=== PATIENT | male | born 1950 | race Caucasian/White ===

== ENCOUNTER → 2017-09-04 | Outpatient (CLI) | payer OTHER ==
--- NOTE | 2017-09-04 12:51 | DIAGNOSTIC IMAGING REPORT ---
LEFT LOWER EXTREMITY VENOUS DOPPLER CLINICAL HISTORY: Left knee pain. COMPARISON STUDY: No previous studies for comparison. TECHNIQUE: Sonography of the deep venous system of the left lower extremity was performed. Compression and augmentation were evaluated. FINDINGS: The common femoral, superficial femoral and popliteal veins were compressible. Augmentation was normal. Flow was shown within the deep calf vessels. IMPRESSION: No evidence of deep venous thrombus within the left lower extremity. Electronically signed by: Justin Blake M.D. 09/04/2017 12:50 PM Dictated Date/Time: 09/04/2017 12:50 PM
== END | disposition home or self-care (01) ==
LOC: C.ULTRBC 12:18
DX: M25.562 Pain in left knee (principal)

== ENCOUNTER 2017-09-09 12:27 | Inpatient (IN) | payer OTHER ==
[~2017-09-09] VITALS: Ht 185.4 cm; Wt 99.1 kg
[2017-09-09 14:07] VITALS: BP 149/81; PULSE 104; TEMP 36.5; Ht 185.4 cm; Wt 99.1 kg
[2017-09-09 14:55] LABS: HEMATOCRIT 36.7 % (42-52); HEMOGLOBIN 12.5 g/dL (14.0-18.0); MEAN CELL VOLUME 82.3 fL (80-100); MEAN CORPUSCULAR HGB CONC 34.1 g/dl (32-36); MEAN PLATELET VOLUME 8.8 fL (7.4-10.4); PLATELET COUNT 386 K/uL (130-400); RED CELL DISTRIBUTION WIDTH SD 42.2 fL (36.4-46.3)
--- NOTE | 2017-09-09 15:26 | Anesthesiology Progress Note ---
Anesthesia Progress Note Date of Service Sep 09, 2017. Progress Notes This is a 67 y/o w male with infected left knee and left ankle.PMHx is significant for HTN.Pt has otherwise been in good health.Discussed anesthesia w / pt ,risks vs benefits ,all questions answered.Informed consent obtained.ASA 2
[2017-09-09] MEDS ORDERED: MoRPHine SULFATE 4 MG/ML 1 ML CARP\\VIAL IV PRN (15:45)
[2017-09-09] MEDS ORDERED: VANCOMYCIN CONSULT ACTIVE PRN (15:45)
[2017-09-09] MEDS ORDERED: MoRPHine SULFATE 10 MG/ML CARP/VIAL IV PRN (15:45)
[2017-09-09] MEDS ORDERED: MoRPHine SULFATE 2 MG/ML CARP IV PRN (15:45)
[2017-09-09] MEDS: OXYCODONE/ACETAMINOPHEN 5-325 TAB PO PRN ×2 (15:46→20:55)
[2017-09-09] MEDS ORDERED: VANCOMYCIN INJ 2,500 MG in SODIUM CHLORIDE 0.9% 500ML 500 ML IV ONE (16:00)
[2017-09-09 16:07] VITALS: BP 147/89; PULSE 101; TEMP 36.7; O2SAT 97
[2017-09-09 16:47] LABS: CREATININE 1.19 mg/dl (0.60-1.40)
--- NOTE | 2017-09-09 20:00 | HISTORY & PHYSICAL EXAMINATION ---
DATE OF ADMISSION: 09/10/2017 REASON FOR ADMISSION: Left knee pain, rule out infected left knee. HISTORY OF PRESENT ILLNESS: The patient is a 67-year-old white male who states that approximately on the of this month he had fallen in a parking lot on the ice. He ended up initially just having some soreness in the knee; however, it soon began to swell and had become very painful. He was seen in [facility] Emergency Room at that time and the patient and his who is also present states that they took too large syringe full of bloody fluid out of the knee and then put an Corey wrap on and felt that it was due to trauma. X-rays were negative for fracture and he was sent home and told to follow up with his orthopedist. He was also having some ankle discomfort and had an ankle film which was also negative for fracture. The patient then continued to notice increase in the swelling again. He was initially seen by Dr. Alex and plans were for an MRI which was then showing a meniscal tear in the left knee. Plans were for then to do an arthroscopy which he was scheduled for however, the patient continued to have worsening knee pain and began having chills, although he was not having any type of fever that could be documented by his . He came to see Dr. Alxe today at which an aspirate was then taken and the patient was then sent to the hospital here at [facility] to rule out septic left knee and the patient is now being admitted. The patient states that he has been essentially nonweightbearing and using crutches at home and continues to do so. He denies any rigors. No chest pain, chest pressure or shortness of breath. PAST MEDICAL HISTORY: Hypertension, which he states he is no longer taking his medication, that was his choice. History of gout. Denies diabetes mellitus, tuberculosis, hepatitis, COPD, rheumatic fever. PAST SURGICAL HISTORY: None. FAMILY HISTORY: Left Knee Arthroscopy x3. R knee arthroscopy SOCIAL HISTORY: The patient smokes cigars on occasion and does drink alcohol. He is . MEDICATIONS: Currently on no medications at this time but he was taking lisinopril for hypertension until he quit taking the pill itself. ALLERGIES: NKDA. REVIEW OF SYSTEMS: No recent fevers but was having chills at home. No nausea or vomiting. No unexplained weight loss or weight gain. No flu or cold-like symptoms. No increased cough or sputum production. No shortness of breath at rest or on exertion. No chest pain, chest pressure, irregular heartbeat. No nausea, vomiting or diarrhea. No abdominal pain, no melena, hematochezia or hematemesis. No hematuria, pyuria, dysuria or renal calculi. No history of frequent infection. No history of seizures. No history of CVA, TIA. No history of migraine headaches. PHYSICAL EXAMINATION: VITAL SIGNS: Recent vital signs show a temperature 36.7, pulse 101, respirations 18, BP 147/89 and pulse ox is 97 on room air. GENERAL: The patient is a well-developed, well-nourished white male who appears younger than his stated age. Upon entering the room, he was ambulating out of the restroom and doing fairly well with that, but not putting much weight on his left lower extremity. He was able to essentially get back into bed almost by himself with just a little bit of help getting his left leg into the bed itself. He does not look to be in severe pain at this time and is pleasant and cooperative. SKIN: Warm and dry. He has a noted scratch on his left lower extremity just above the ankle which was due to a cat which was approximately a week or so. Otherwise, there is no overt erythema, other than down at the ankle which will be explained in extremities. HEENT: Head is normocephalic and atraumatic. There is no scleral icterus or injection. Nasal airway is patent. Oral mucosa is pink and moist. NECK: Supple. HEART: Regular rate and rhythm. LUNGS: Clear to auscultation. ABDOMEN: Soft, round and nontender. Bowel sounds are present x4. GENITALIA AND RECTAL: Not performed at this time. EXTREMITIES: On examination of the patient's left lower extremity, he has some mild tenderness over the lateral aspect of the joint line of his knee. There is no overt erythema and maybe a mild effusion of the left knee compared to the right. His range of motion is limited at this time. He does have a slight flexion contracture due to mostly pain and can flex the knee to about 40 degrees until he begins to say that he is having a lot of pain. No pain in the left hip and range of motion is essentially within normal limits. The left ankle has noted erythema but appears more like bruising on the medial aspect. He has some increased pain over the medial malleolus, but no crepitus is appreciated and the bruising goes down over the ankle and down over the parts of the dorsum of the foot over the medial aspect. He has mild swelling noted of the ankle and minimal pain over the lateral malleolus. He is able to do gentle range of motion of the left ankle with mild pain but has some limited range of motion compared to the right. There is no decreased sensation noted of the left lower extremity at this time. Right lower extremity is essentially within normal limits with range of motion of the hip, knee and ankle and is nontender. Upper extremity range of motion is within normal limits bilaterally. He is nontender at the shoulders, elbows and wrists and neck is nontender on palpation and he has good range of motion of the neck at this time. He denies any thoracic back pain and no overt lumbosacral pain at this time but does have back pain off and on in the past. There is no gross motor or sensory loss at this time other than noted decreased range of motion due to pain in the left lower extremity. ASSESSMENT: Left knee pain status post fall with noted meniscal tear and question of septic left knee. PLAN: Currently, his white count is normal at 6.10. Sed rate was increased at 52. C-reactive protein was 7. His aspirate was sent for cell count by Dr. Alex and was showing 4689 white cells, 3,000 red cells, 89.8% polys and 10% monocytes. Fluid crystals were analyzed and did show strongly birefringent needle shaped crystals representing gout. Gram stain and culture are pending. I have discussed this with Dr. Alex recently. We will continue his vancomycin and continue plans for infectious disease consult. The patient is slated for an arthroscopy of the left knee tomorrow with Dr. Yasir figueroa and we will continue these plans for now. We will continue n.p.o. after midnight and hold off on any type of nonsteroidal anti-inflammatory for his gout for the pending surgery. CHOCO
--- NOTE | 2017-09-09 21:19 | Pharmacy Progress Note ---
Pharmacy Antibiotic Consult Date of Service: Sep 09, 2017. Pharmacy Dosing Scope Pharmacy is consulted to initiate vancomycin IV dosing therapy, order appropriate labs and adjust drug dose/frequency. Subjective The patient is a 67 year old male admitted on Sep 09, 2017 at 13:20 with left knee pain swelling, possible septic knee. Objective Height (Feet): 6 Height (Inches): 1.00 Weight (Kilograms): 99.090 Lab Results (24hrs): Test 09/09/17 14:38 09/09/17 14:58 White Blood Count 6.10 K/uL (4.8-10.8) Red Blood Count 4.46 M/uL (4.7-6.1) Hemoglobin 12.5 g/dL (14.0-18.0) Hematocrit 36.7 % (42-52) Mean Corpuscular Volume 82.3 fL (80-100) Mean Corpuscular Hemoglobin 28.0 pg (25-34) Mean Corpuscular Hemoglobin Concent 34.1 g/dl (32-36) RDW Standard Deviation 42.2 fL (36.4-46.3) RDW Coefficient of Variation 14.0 % (11.5-14.5) Platelet Count 386 K/uL (130-400) Mean Platelet Volume 8.8 fL (7.4-10.4) Erythrocyte Sedimentation Rate 52 mm/hr (0-14) Creatinine 1.19 mg/dl (0.60-1.40) Est Creatinine Clear Calc Drug Dose 76.7 ml/min Estimated GFR () 73.9 Estimated GFR (Non- 63.7 C-Reactive Protein 7.01 mg/dl (0-0.29) Procalcitonin < 0.05 ng/ml (0-0.5) Hepatitis C Antibody Screen NEG (NEG) Body Fluid Source KNEE Body Fluid Color YELLOW Body Fluid Appearance CLOUDY Body Fluid WBC 4689 /uL Body Fluid RBC 3000 /uL Body Fluid Polynuclear WBCs (%) 89.8 % Body Fluid Mononuclear WBCs (%) 10.2 % Body Fluid Crystals Micro Results: Joint fluid cx left knee, pending. Assessment & Plan Vancomycin: Loading dose: 2500mg (~25mg/kg) mg IV X 1 dose then: 1500mg IV every 14 hours. Goal trough level estimate: between 15 - 20 mcg/mL. Peak and trough or random level have not been ordered yet; pt for OR tomorrow and will order trough level postop. Pharmacy will continue to follow and will adjust dose/frequency as necessary. Thank you
[2017-09-09 23:00] VITALS: BP 137/74; PULSE 90; TEMP 37.2; O2SAT 95
[2017-09-10] MEDS ORDERED: VANCOMYCIN INJ 1,500 MG in SODIUM CHLORIDE 0.9% 500ML 500 ML IV SCH (06:00)
[2017-09-10 08:39] VITALS: BP 146/83; PULSE 88; TEMP 36.8; O2SAT 94
--- NOTE | 2017-09-10 10:57 | Orthopedic Progress Note ---
Orthopedic Progress Note Date of Service Sep 10, 2017. Subjective Reports: feeling well, complaints (knee pain) Additional Notes: Pt lying in bed. Feels that the knee may be a little better. No new complaints. Dr Alex has cancelled OR for today. Discussed with pt. Objective calves soft nontender, N/V intact, A&O x3, toes mobile Less erythema on ankle and the swelling appears to be down a bit. No overt effusion in the left knee. No erythema. ROM still limited due to pain. Date Time Temp Pulse Resp B/P (MAP) Pulse Ox O2 Delivery O2 Flow Rate FiO2 09/10/17 08:39 36.8 88 18 146/83 (104) 94 Room Air 09/09/17 23:56 Room Air 09/09/17 23:00 37.2 90 16 137/74 (95) 95 Room Air 09/09/17 19:50 Room Air 09/09/17 16:07 36.7 101 18 147/89 (108) 97 Room Air 09/09/17 15:37 Room Air 09/09/17 14:07 36.5 104 18 149/81 Room Air Laboratory Results 24 Hours: Test 09/09/17 14:38 Hematocrit 36.7 % Hemoglobin 12.5 g/dL Assessment & Plan Assessment: Likely Gouty Flare vs infection left knee Plan: Cx pending. Gram stain negative for organisms Consult placed for ID team Continue antibx for now Inhouse Planning Pain Management: Morphine, Oxy IR
[2017-09-10] MEDS ORDERED: NURSING VERBAL MED ORDER ONE (11:30)
[2017-09-10] MEDS: INDOMETHACIN 25 MG CAP PO SCH ×2 (12:35→21:01)
--- NOTE | 2017-09-10 13:32 | Progress Note ---
Progress Note Date of Service Sep 10, 2017. Progress Note ID Consult Dictated #[id number] A/P: 1. gout left knee -Agree with alyxo for now, pending aspirate culture, if negative, can d/c off of abx -Continue therapy for gout -thank you
--- NOTE | 2017-09-10 13:48 | INFECT. DISEASE CONSULTATION ---
DATE OF CONSULTATION: 09/10/2017 HISTORY OF PRESENT ILLNESS: This is a 67-year-old gentleman who was admitted to the hospital after he had worsening knee pain and swelling. His is present and provides his history. She states that he did slip on the ice in the parking lot on the and subsequently had worsening knee pain and swelling. He was seen in the ER and he had an aspiration of a significant amount of bloody fluid. He continued to have pain, followed up with orthopedic surgery and an MRI was performed. This showed a partial meniscus tear. He was due to have outpatient surgery today for meniscus repair; however, he continued to have worsening pain and swelling in the left knee. Additionally, he did suffer a cat scratch on the medial ankle from his cat at home and continued with pain in the ankle as well. He does have a history of gout, but has not had a flare in some time. He did follow up with orthopedics and was subsequently sent to the Emergency Room for admission. An aspirate was done yesterday, which showed 4689 white cells with 90% neutrophils. Crystal analysis was significantly positive for gout. Culture is pending. CRP is 7. Sed rate is 62. His white blood cell count was normal. He has been afebrile since admission and states he was afebrile prior to admission. He is on empiric vancomycin, awaiting culture results. He initially was due to have surgery today; however, this has been postponed pending culture results. If culture is negative, he will be discharged home on treatment for gout and will follow up at a later date for meniscus repair. If his cultures are positive, he states he will go to the OR tomorrow for a washout. He currently denies any fevers or chills. He has no chest pain, cough, shortness of breath, nausea, vomiting or diarrhea. He is currently on pain medication and he states that his pain is well controlled and he is feeling significantly better today. His remaining review of systems is reviewed and unremarkable. PAST MEDICAL HISTORY: Significant for hypertension and a history of gout. PAST SURGICAL HISTORY: He has no surgical history. FAMILY HISTORY: Noncontributory. SOCIAL HISTORY: Significant for occasional cigar smoke. He does not drink or use drugs. He is and his is present. ALLERGIES: He has no known drug allergies. CURRENT MEDICATIONS: Include vancomycin, indomethacin, oxycodone, and morphine. PHYSICAL EXAMINATION: VITAL SIGNS: He is afebrile, pulse 80, respiratory rate 18, blood pressure 146/83, and oxygen saturation is 94%-97% on room air. GENERAL: He is awake, alert and oriented x3. He is in no acute distress. HEENT: Mucous membranes are moist. Extraocular muscles are intact. HEART: Regular. LUNGS: Clear. ABDOMEN: Soft. EXTREMITIES: There is no lower extremity edema. Examination of the left knee reveals minimal swelling. There is no pain, warmth, erythema or tenderness. There is a cat scratch noted on the left medial ankle. There is minimal swelling at the medial malleolus. There is no tenderness or warmth or open wound. LABORATORY STUDIES: CBC yesterday reveals a white blood cell count of 6.1, hemoglobin 12.5, and platelets were 386. Sed rate is 52. Creatinine yesterday was 1.1. CRP was 7.0. Procalcitonin was negative. Aspirate is as above. Hep C antibody is negative. Culture is pending. Gram stain shows no organisms, but many WBCs. There is no imaging to review on this admission. ASSESSMENT AND PLAN: Gout of the left knee. I agree that he can be continued on empiric antibiotics pending the results of his wound culture. If his aspirate culture is negative, certainly he could be discontinued with the vancomycin and discharged home without antibiotics and focus history on gout. I will follow the results of culture.
[2017-09-10 15:38] VITALS: BP 169/92; PULSE 94; TEMP 36.2; O2SAT 96
[2017-09-10 16:42] VITALS: BP 137/82
[2017-09-10] MEDS: OXYCODONE HCL IR 5 MG TAB (IMMEDIATE RELEASE) PO PRN ×2 (16:48→21:02)
[2017-09-10] MEDS: VANCOMYCIN INJ 1,500 MG in SODIUM CHLORIDE 0.9% 500ML 500 ML IV SCH (19:49)
[2017-09-10 19:53] VITALS: BP 119/71; PULSE 94
[2017-09-10 22:50] VITALS: BP 134/78; PULSE 85; TEMP 36.9; O2SAT 96
[2017-09-11] MEDS ORDERED: VANCOMYCIN TROUGH ONE (05:30)
[2017-09-11 06:39] LABS: CREATININE 1.15 mg/dl (0.60-1.40)
[2017-09-11] MEDS ORDERED: INDO-22 PO (07:07)
--- NOTE | 2017-09-11 07:11 | Discharge Instructions ---
Discharge Instructions Date of Service Sep 11, 2017. Admission Reason for Admission: L Knee Poss Septic Joint, Arthroscopic Ind Discharge Discharge Diagnosis / Problem: Gout Left Knee Discharge Goals Goal(s): Decrease discomfort, Improve function, Increase independence Activity Recommendations Activity Limitations: per Instructions/Follow-up section Weightbearing Status: Left weightbearing (as tolerated) Weight as tolerated on the left knee. You may use ice or heat as needed on the knee. Keep left leg elevated when at rest if you continue to have swelling Follow up with Dr Alex in 10-14 days. Call for appointment. [phone] . Current Hospital Diet Patient's current hospital diet: Regular Diet Discharge Diet Recommended Diet: Regular Diet Pending Studies Studies pending at discharge: yes List of pending studies: Knee culture results Medical Emergencies . Who to Call and When: Medical Emergencies: If at any time you feel your situation is an emergency, please call 911 immediately. . Non-Emergent Contact Non-Emergency issues call your: Surgeon Call Non-Emergent contact if: temperature is above 101.5, your pain is not controlled, your pain is worsening, wound has increased drainage, wound has increased redness . "Provider Documentation" section prepared by Jaxon Rebolledo. . VTE Core Measure Inpt VTE Proph given/why not?: Other Anticoagulation, T.E.D. Stockings, SCD's [place] Drug Monitoring Program Search Results: patient reviewed within database, no issues identified
[2017-09-11] MEDS: VANCOMYCIN INJ 1,500 MG in SODIUM CHLORIDE 0.9% 500ML 500 ML IV SCH (07:15)
--- NOTE | 2017-09-11 09:20 | Orthopedic Progress Note ---
Orthopedic Progress Note Date of Service Sep 11, 2017. Subjective Reports: feeling well, Denies: chest pain, SOB, nausea / vomiting, light headedness, calf pain Additional Notes: PATIENT STATES OVERALL HE IS IMPROVING. HE STILL HAS ORIGINAL KNEE ISSUES THAT HE WAS BEING TREATED FOR AN OUTPATIENT. PRIOR TO ADMISSION HE WAS SCHEDULED FOR LEFT KNEE ARTHROSCOPY. ANKLE FEELING BETTER. Objective calves soft nontender, N/V intact, capillary refill less than 2 sec., A&O x3, toes mobile STILL WITH MILD LEFT KNEE EFFUSION. NO ERYTHEMA. ROM LESS PAINFUL. Date Time Temp Pulse Resp B/P (MAP) Pulse Ox O2 Delivery O2 Flow Rate FiO2 09/11/17 08:23 Room Air 09/11/17 00:00 Room Air 09/10/17 22:50 36.9 85 18 134/78 (96) 96 Room Air 09/10/17 19:53 94 119/71 (87) 09/10/17 16:42 137/82 (100) 09/10/17 16:30 Room Air 09/10/17 15:38 36.2 94 18 169/92 (117) 96 Room Air 09/10/17 11:08 Room Air Additional Notes: GRAM STAIN Final 09/10/17-0855 RESULT NO ORGANISMS SEEN MANY WBCs SEEN JOINT FLUID/SPACE CULTURE Final 09/11/17-0841 NO GROWTH Assessment & Plan Assessment: Likely Gouty Flare LLE Plan: Cx NEGATIVE-FINAL. Gram stain negative for organisms Consult placed for ID team- APPRECIATE INPUT. RECOMMEND TREATING GOUT. NO NEED FOR ABX ON DC. REGULAR DIET DC HOME LATER TODAY ON INDOCIN PATIENT COMFORTABLE USING CRUTCHES. MAY WBAT. FOLLOW UP WITH DR. BANSAL IN 10-14 DAYS TO RESCHEDULE KNEE ARTHROSCOPY. Inhouse Planning Pain Management: Morphine, Oxy IR
[2017-09-11 09:52] VITALS: BP 137/86; TEMP 36.9
[2017-09-11] MEDS: INDOMETHACIN 25 MG CAP PO SCH ×2 (10:29→13:02)
[2017-09-11 12:03] VITALS: BP 137/86; PULSE 85; TEMP 36.9; O2SAT 96
== END 2017-09-11 13:25 | disposition home or self-care (01) | DRG 554 ==
LOC: C.MSN 13:20
DX: M10.9 Gout, unspecified (principal); S83.204A Other tear of unspecified meniscus, current injury, left knee, initial encounter; M25.472 Effusion, left ankle; I10 Essential (primary) hypertension; W00.0XXA Fall on same level due to ice and snow, initial encounter; F17.290 Nicotine dependence, other tobacco product, uncomplicated; Z72.89 Other problems related to lifestyle